=== PATIENT | female | born 1990 | race Caucasian/White ===

== ENCOUNTER → 2018-04-08 | Outpatient (CLI) | payer MEDICAID | LOC: FIMAGING 12:42 | PROVIDERS: ATTEND Advanced Practice Midwife | DX: Z34.83 Encounter for supervision of other normal pregnancy, third trimester (principal); Z3A.33 33 weeks gestation of pregnancy ==

== ENCOUNTER 2018-05-20 14:29 | Inpatient (IN) | payer MEDICAID ==
[2018-05-20] MEDS ORDERED: TERBUTALINE SULFATE 1 MG/ML VIAL IV PRN (14:49)
[2018-05-20] MEDS ORDERED: IBUPROFEN 600 MG TAB PO PRN (14:49)
[2018-05-20] MEDS ORDERED: LR 1,000 ML IV PRN (14:49)
[2018-05-20] MEDS ORDERED: MISOPROSTOL 200 MCG TAB PR PRN (14:49)
[2018-05-20] MEDS ORDERED: LIDOCAINE 1% 300 MG/30 ML SDV SC PRN (14:49)
[2018-05-20] MEDS ORDERED: OXYTOCIN/RINGERS LACTATE 1,000 ML IV PRN (14:49)
[2018-05-20] MEDS ORDERED: OLIVE OIL 118 ML BTL MISC PRN (14:49)
[2018-05-20] MEDS ORDERED: EPSOM SALT 454 GM TP PRN (14:49)
[2018-05-20] MEDS ORDERED: OXYTOCIN/RINGERS LACTATE 500 ML IV PRN (15:21)
--- NOTE | 2018-05-20 15:24 | PDGENHP ---
History and Physical History and Physical: CARE: [facility] HPI: Patient is a 27 yo G 2 P 1 @ 40.2 weeks that presents to L&D with complaints of strong uterine contractions. EDC: 05/18/18 which is based on LMP: 08/11/17 which is known and consistent with Ultrasound at 3 weeks. Her is complicated by: n/a Review of Systems: Constitutional: Denies any fever, chills, or fatigue HEENT: denies any visual changes, difficulty swallowing, hearing loss Cardiovascular: Denies any chest pain, palpitations, leg swelling Respiratory: denies any cough, wheezing, or shortness of breathe GI: Denies any nausea, vomiting, diarrhea, constipation : denies any dysuria, urgency, frequency, vaginal bleeding Musculoskeletal: denies any muscle or bone pain Skin: denies any rashes Neuro: denies any headache, seizures, lightheadedness, dizziness, or loss of consciousness Psychiatric: denies any depression, anxiety, or SI/HI thoughts HISTORY: Previous OB history: at home 2016, 2000 ml PPH. Social history: , SAHM Family history: non-contributory Past medical history: denies Past surgical history: no surgery Medications: PNV, alfalfa, iron Allergies (list reaction): NKDA LABS: Rh: O+ ABS: Neg Rubella: Immune HbsAg: NR HIV: NR VDRL: NR 1hr: 87 GC: Neg Chlamydia: Neg Pap: Normal 2014 GBS: neg BMI: (prepreg) 16 PHYSICAL EXAM: Constitutional: WN, A&Ox3 HEENT: normocephalic atraumatic, supple Heart: RRR, no murmur Chest: CTA-B Skin: warm, dry, intact Abdomen: Soft, nontender, gravid SVE: 10/100/+1 Extremities: no edema, negative homans sign Neuro: grossly normal Psych: normal affect assessment: FHT baseline 140 +accels, variable decels, moderate variability Contractions: toco q 2-3 Assessment: 1) 27 yo G 2 P 1 with IUP@ 40.2 2) spontaneous labor 3) GBS neg 4) Cat 1 FHR tracing Plan: 1) Admit to L&D 2) anticipate , active management of 2nd stage.
--- NOTE | 2018-05-20 15:27 | OBDEL ---
Info Type: Vaginal Presentation at Delivery: Vertex L&D Analgesia/Anesthesia Type: None GBS+: No - Hospital Course Intrapartum: 05/20/18 15:25 precipitous delivery Indications for Delivery: Spontaneous Labor Vaginal Delivery - Delivery Provider Delivery Physician/CNM: Neelima Carney - Labor and Delivery Onset of Contractions Date: 05/20/18 Onset of Contractions Time: 03:30 Onset of Contractions Type: Spontaneous Rupture of Membranes Date: 05/20/18 Rupture of Membranes Time: 14:58 Rupture of Membranes Type: Spontaneous Amniotic Fluid Color: Meconium Stained Dilation Complete Date: 05/20/18 Dilation Complete Time: 14:45 Placenta Delivery Date: 05/20/18 Placenta Delivery Time: 15:08 Total Hours of Labor: 11 Vaginal Sponge Count Correct: Yes Vaginal Needle Count Correct: Yes Delivery Events: None Delivery Comment: hands and knees in bathroom - Medications Labor Augmentation/Induction Methods Used: None Data [place] Delivery Date: 05/20/18 Delivery Time: 14:59 Sex of Infant: Male Score (1 Min): 7 Score (5 Min): 8 ICD10 Worksheet Patient Problems: Problems Problem Status Onset Term Acute - ICD10 Problem Qualifiers (1) Term
[2018-05-20 15:39] LABS: PLATELET COUNT 243 10^3/uL (150-400)
[2018-05-20] MEDS: ACETAMINOPHEN 325 MG TAB PO SCH ×2 (17:48→21:20)
[2018-05-20] MEDS: IBUPROFEN 600 MG TAB PO SCH (21:29)
[2018-05-21] MEDS: IBUPROFEN 600 MG TAB PO SCH ×3 (03:29→16:59)
[2018-05-21] MEDS: ACETAMINOPHEN 325 MG TAB PO SCH ×3 (03:30→18:04)
--- NOTE | 2018-05-21 10:29 | OBPP ---
Progress Note Assessment/Plan: Assessment: Plan: 05/21/18 10:28 PPD #1 Establishing Mild anemia Plan: Discharge home today continue ibuprofen Follow up in clinic at 2 , 4 and 6 weeks Subjective/ Course: 05/21/18 10:27 Doing very well. States baby is nursing frequently and without difficulty. Pain well controlled with ibuprofen. Desires discharge home today. Objective: 05/21/18 06:20 Patient ABO/Rh O POSITIVE 05/20/18 14:15 Temp Pulse Resp BP Pulse Ox 37.0 C 102 H 20 123/78 H 97 05/20/18 20:00 05/20/18 20:00 05/20/18 20:00 05/20/18 20:00 05/20/18 20:00 Breasts: Soft, nipples intact bilaterally Uterine Position/Fundal Height: Umbilicus -3 Uterine Tone: Firm
--- NOTE | 2018-05-21 10:29 | OBGCSDC ---
General Delivery Information - General Info : 2 Para: 2 Abortions: 0 Type: Vaginal L&D Analgesia/Anesthesia Type: None Admission Date: 05/20/18 Labs: Patient ABO/Rh O POSITIVE 05/20/18 14:15 Hct 30.3 % (38.0-47.0) L 05/21/18 06:20 - Hospital Course Intrapartum: 05/20/18 15:25 precipitous delivery : 05/21/18 10:27 Doing very well. States baby is nursing frequently and without difficulty. Pain well controlled with ibuprofen. Desires discharge home today. Vaginal - Delivery Provider Delivery Physician/CNM: Neelima Carney - Diagnosis Labor: Spontaneous Rupture of Membranes Type: Spontaneous Amniotic Fluid Color: Meconium Stained Delivery Events: None [place] Data KANWAL: 05/18/18 Gestational Age: 40 week(s) and 3 day(s) [place] Delivery Date: 05/20/18 Delivery Time: 14:59 Sex of Infant: Male [place] Weight (gm): 3512 g Score (1 Min): 7 Score (5 Min): 8 Discharge Information - Discharge Information Condition: Good Instruction/Follow Up: Two Weeks, Four Weeks, Six Weeks
[2018-05-21 14:23] VITALS: BP 106/62
== END 2018-05-21 17:45 | disposition home or self-care (01) | DRG 560 ==
LOC: FLD 14:29 → OBSVTOIN 14:51 → FOB 18:47
PROVIDERS: ADMIT Advanced Practice Midwife; ATTEND Advanced Practice Midwife
PROC: 10E0XZZ Delivery of Products of Conception, External Approach (ICD-10-PCS; principal; 2018-05-20)
DX: O62.3 Precipitate labor (principal); O77.0 Labor and delivery complicated by meconium in amniotic fluid; O90.81 Anemia of the puerperium; Z3A.40 40 weeks gestation of pregnancy; Z37.0 Single live birth
CPT/HCPCS: J2590